=== PATIENT | male | born 1955 | race Caucasian/White ===

== ENCOUNTER 2019-01-18 16:22 | Emergency (ER) | payer OTHER ==
[~2019-01-18] VITALS: Ht 193 cm; Wt 72.6 kg
[~2019-01-18 16:22] MED LIST: ASPIR 8181 MG PO; COZAAR 25 MG TA25 M1 PO; PLAVIX 75 MG TA75 M1 PO; PROTONIX40 M1 PO; ROSUVASTATIN CA20 MG PO
[2019-01-18] MEDS ORDERED: ZETIA10 MG PO (16:39)
[2019-01-18 16:41] LABS: ABSOLUTE NEUTROPHILS 5.5 thou/uL (1.4-8.2); BASOPHILS 0.7 % (0.0-2.0); EOSINOPHILS 2.6 % (0.0-3.0); HEMATOCRIT 35.2 % (42.0-52.0); HEMOGLOBIN 11.7 gm/dL (14.0-18.0); LYMPHOCYTES 25.8 % (24.0-44.0); MCH 31.8 pg (26.0-34.0); MCHC 33.2 g/dL (28.0-37.0); MCV 95.7 fL (80.0-100.0); MONOCYTES 7.1 % (1.0-8.0); PLATELET COUNT 223 thou/uL (150-400); POLYS 63.8 % (36.0-66.0); RBC 3.68 mil/uL (4.50-6.00); RDW 13.6 % (10.5-14.5); WBC 8.6 thou/uL (4.0-11.0)
[2019-01-18 16:44] LABS: URINE BILIRUBIN NEGATIVE (Negative); URINE BLOOD TRACE (Negative); URINE CLARITY CLEAR; URINE COLOR YELLOW; URINE GLUCOSE-RANDOM* NEGATIVE (Negative); URINE KETONES NEGATIVE (Negative); URINE LEUKOCYTES-REFLEX NEGATIVE (Negative); URINE NITRITE-REFLEX NEGATIVE (Negative); URINE PROTEIN (DIPSTICK) NEGATIVE (Negative); URINE SPECIFIC GRAVITY <= 1.005 (1.005-1.035); URINE UROBILINOGEN 0.2 E.U./dl (0.2-1.0)
[2019-01-18 16:59] LABS: APTT 31.6 Seconds (24.5-32.8); D-DIMER 0.61 ug/mLFEU (0.19-0.50); PROTIME 10.3 Seconds (9.3-11.4)
[2019-01-18 17:00] LABS: ANION GAP 11 mmol/L (7-16); BUN 9 mg/dL (7-18); CHLORIDE 98 mmol/L (98-107); CO2 24 mmol/L (21-32); GLUCOSE 94 mg/dL (74-106); POTASSIUM 3.6 mmol/L (3.5-5.1); SODIUM 133 mmol/L (136-145)
[2019-01-18 17:04] LABS: MAGNESIUM 1.9 mg/dL (1.8-2.4)
[2019-01-18 17:09] LABS: ALBUMIN 3.8 g/dL (3.4-5.0); SGOT 36 U/L (15-37); SGPT 29 U/L (30-65); TOTAL BILIRUBIN 0.5 mg/dL (<0.1-1.0); TOTAL PROTEIN 7.4 g/dL (6.4-8.2); TROPONIN-I <0.06 ng/mL (<0.06)
[2019-01-18] MEDS ORDERED: CEFDINIR300 MG PO (17:58)
[2019-01-18 18:20] VITALS: BP 121/51
--- NOTE | 2019-01-19 10:54 | EKG ---
[address] [place] [address] ELECTROCARDIOGRAM REPORT Name: FELICIA ROBERTS [facility] [id number] Admission: 01/18/19 Attend Phys: Discharge: 01/18/19 Date of : 53 Report #: [id number] THIS REPORT FOR: //name// [facility] ED Test Date: 2019-01-18 Test Time: 16:26:46 Pat Name: FELICIA ROBERTS Department: Room: Gender: M Model [employer]: [facility] : 1955 Requested By: Cristina Crabtree Order Number: [id number] MD: Beni Coley Measurements Intervals [place] Rate: 73 P: 87 [place]: 182 QRS: 78 QRSD: 98 T: 67 QT: 374 QTc: 413 Interpretive Statements Sinus rhythm RSR' in V1 or V2, probably normal variant Probable left ventricular hypertrophy Compared to ECG 07/16/2016 15:22:24 RSR' in V1 or V2 now present ST (T wave) deviation no longer present Electronically Signed On 01-19-2019 10:53:46 CDT by Beni Coley [email or web address] <ELECTRONICALLY SIGNED> By: Beni Coley MD 01/19/19 1053 1626 1626 Beni Coley MD /LORI
== END 2019-01-18 18:20 | disposition home or self-care (01) ==
LOC: ER 16:22
PROVIDERS: Emergency Medicine; Physician Assistant
DX: J32.2 Chronic ethmoidal sinusitis (principal); D64.9 Anemia, unspecified; R31.29 Other microscopic hematuria; R42 Dizziness and giddiness; I10 Essential (primary) hypertension; E78.00 Pure hypercholesterolemia, unspecified; E78.5 Hyperlipidemia, unspecified; F17.210 Nicotine dependence, cigarettes, uncomplicated; Z96.651 Presence of right artificial knee joint; Z88.1 Allergy status to other antibiotic agents; Z88.2 Allergy status to sulfonamides

== ENCOUNTER 2019-05-28 10:08 | Emergency (ER) | payer OTHER ==
[~2019-05-28] VITALS: Ht 193 cm; Wt 74.8 kg
[~2019-05-28 10:08] MED LIST changes: +CEFDINIR300 MG PO; +ZETIA10 MG PO
[2019-05-28 10:30] LABS: ABSOLUTE NEUTROPHILS 5.7 thou/uL (1.4-8.2); BASOPHILS 0.9 % (0.0-2.0); EOSINOPHILS 4.2 % (0.0-3.0); HEMATOCRIT 39.5 % (42.0-52.0); HEMOGLOBIN 13.4 gm/dL (14.0-18.0); LYMPHOCYTES 25.5 % (24.0-44.0); MCH 33.1 pg (26.0-34.0); MCHC 33.9 g/dL (28.0-37.0); MCV 97.6 fL (80.0-100.0); MONOCYTES 6.9 % (1.0-8.0); PLATELET COUNT 268 thou/uL (150-400); POLYS 62.5 % (36.0-66.0); RBC 4.05 mil/uL (4.50-6.00); RDW 13.6 % (10.5-14.5); WBC 9.2 thou/uL (4.0-11.0)
[2019-05-28] MEDS ORDERED: PROAIR HFA8.5 GM INH (10:31)
[2019-05-28 10:38] LABS: ANION GAP 9 mmol/L (7-16); BUN 16 mg/dL (7-18); CALCIUM 9.9 mg/dL (8.5-10.1); CHLORIDE 102 mmol/L (98-107); CO2 29 mmol/L (21-32); GLUCOSE 84 mg/dL (74-106); POTASSIUM 3.9 mmol/L (3.5-5.1); SODIUM 140 mmol/L (136-145)
[2019-05-28 10:46] LABS: TROPONIN-I <0.06 ng/mL (<0.06)
[2019-05-28] MEDS ORDERED: CARAFATE 1 GM TA1 G1 PO (12:57)
[2019-05-28] MEDS ORDERED: PROTONIX40 MG PO (12:57)
[2019-05-28] MEDS ORDERED: NORCO 5-325 TA1 EAC1 PO (12:57)
[2019-05-28] MEDS ORDERED: SENNA-DOCUSATE1 EAC1 PO (12:57)
[2019-05-28 13:16] VITALS: BP 152/73
--- NOTE | 2019-05-29 17:18 | EKG ---
[address] [address] [employer] [facility] [place] [address] ELECTROCARDIOGRAM REPORT Name: FELICIA ROBERTS Room #: DEP Jose#: [id number] Admission: 05/28/19 Attend Phys: Discharge: 05/28/19 Date of : 53 Report #: [id number] THIS REPORT FOR: //name// [facility] ED Test Date: 2019-05-28 Test Time: 10:10:20 Pat Name: FELICIA ROBERTS Department: Room: Gender: Porcelain Turner: : 1955 Requested By: Yfn Estrada Order Number: [id number] MD: Manan James Measurements Intervals [place] Rate: 86 P: 78 MS: 164 QRS: 83 QRSD: 97 T: 78 QT: 377 QTc: 451 Interpretive Statements Sinus rhythm Borderline right axis deviation Compared to ECG 01/18/2019 16:26:46 No significant changes Electronically Signed On 05-29-2019 17:17:41 MANAGER E LEARNING by Manan James [email or web address] <ELECTRONICALLY SIGNED> By: Manan James MD 05/29/19 1717 1010 1010 MD SAVANNA Young
== END 2019-05-28 13:17 | disposition home or self-care (01) ==
LOC: ER 10:08
PROVIDERS: Emergency Medicine
DX: R10.13 Epigastric pain (principal); I10 Essential (primary) hypertension; E78.5 Hyperlipidemia, unspecified; F17.210 Nicotine dependence, cigarettes, uncomplicated; Z88.1 Allergy status to other antibiotic agents; Z88.2 Allergy status to sulfonamides; Z96.651 Presence of right artificial knee joint

== ENCOUNTER 2020-02-09 06:39 | Emergency (ER) | payer OTHER ==
[~2020-02-09] VITALS: Ht 195.6 cm; Wt 74.8 kg
[~2020-02-09 06:39] MED LIST changes: +CARAFATE 1 GM TA1 G1 PO; +NORCO 5-325 TA1 EAC1 PO; +PROAIR HFA8.5 GM INH; +PROTONIX40 MG PO; +SENNA-DOCUSATE1 EAC1 PO
[2020-02-09] MEDS ORDERED: SUPER B COMPLEX PO (06:54)
[2020-02-09] MEDS ORDERED: PROTONIX40 M2 PO (06:54)
[2020-02-09] MEDS ORDERED: POTASSIUM (06:55)
[2020-02-09] MEDS ORDERED: FLONASE 0.05%50 MCG NARES (06:56)
[2020-02-09 07:21] LABS: HEMATOCRIT 39.9 % (42.0-52.0); HEMOGLOBIN 13.3 gm/dL (14.0-18.0); MCH 32.5 pg (26.0-34.0); MCHC 33.3 g/dL (28.0-37.0); MCV 97.5 fL (80.0-100.0); RBC 4.1 mil/uL (4.50-6.00); RDW 13.4 % (10.5-14.5); WBC 9.4 thou/uL (4.0-11.0)
[2020-02-09 07:29] LABS: ANION GAP 15 mmol/L (7-16); BUN 11 mg/dL (7-18); CALCIUM 9.5 mg/dL (8.5-10.1); CHLORIDE 103 mmol/L (98-107); CO2 23 mmol/L (21-32); CREATININE 0.9 mg/dL (0.7-1.3); GLUCOSE 128 mg/dL (74-106); POTASSIUM 3.8 mmol/L (3.5-5.1); SODIUM 141 mmol/L (136-145)
[2020-02-09 07:37] LABS: TROPONIN-I <0.06 ng/mL (<0.06)
[2020-02-09] MEDS ORDERED: DOXYCYCLINE 10100 MG PO (08:14)
--- NOTE | 2020-02-09 08:15 | EKG ---
[facility] [place] [address] ELECTROCARDIOGRAM REPORT Name: FELICIA ROBERTS Room #: REG [facility].#: [id number] Admission: 02/09/20 Attend Phys: Discharge: Date of : 53 Report #: [id number] THIS REPORT FOR: cc: Keith Lewis Theodore M. DO Santiago, Patrick MD [facility] ~ THIS REPORT FOR: //name// [facility] ED Test Date: 2020-02-09 Test Time: 07:28:18 Pat Name: FELICIA ROBERTS Department: Room: Gender: Research Laboratory Technician: CHELY BUI : 1955 Requested By: Jake Good Order Number: [id number] MD: Nick Rai Measurements Intervals [place] Rate: 72 P: 80 [place]: 177 QRS: 77 QRSD: 97 T: 73 QT: 409 QTc: 448 Interpretive Statements Sinus rhythm RSR' in V1 or V2, probably normal variant Compared to ECG 05/28/2019 10:10:20 RSR' in V1 or V2 now present Electronically Signed On 02-09-2020 8:14:58 CDT by Nick Rai [email or web address] <ELECTRONICALLY SIGNED> By: Nick Rai MD, [facility] 02/09/2014 7 7 Nick Rai MD, [facility] /EPI
[2020-02-09 08:37] VITALS: BP 113/60
== END 2020-02-09 08:45 | disposition home or self-care (01) ==
LOC: ER 06:39
PROVIDERS: Emergency Medicine
DX: J32.9 Chronic sinusitis, unspecified (principal); I10 Essential (primary) hypertension; E78.5 Hyperlipidemia, unspecified; F17.210 Nicotine dependence, cigarettes, uncomplicated; Z79.899 Other long term (current) drug therapy; Z88.2 Allergy status to sulfonamides; Z88.1 Allergy status to other antibiotic agents; Z88.8 Allergy status to other drugs, medicaments and biological substances

== ENCOUNTER → 2020-09-01 | Outpatient (CLI) | payer OTHER ==
[~2020-09-01] MED LIST changes: +DOXYCYCLINE 10100 MG PO; +FLONASE 0.05%50 MCG NARES; +POTASSIUM; +PROTONIX40 M2 PO; +SUPER B COMPLEX PO
== END ==
LOC: SJCVCIMAG 08-30 08:49
PROVIDERS: ATTEND Internal Medicine Cardiovascular Disease
DX: I65.23 Occlusion and stenosis of bilateral carotid arteries (principal); I70.201 Unspecified atherosclerosis of native arteries of extremities, right leg; R00.0 Tachycardia, unspecified; E78.5 Hyperlipidemia, unspecified; I10 Essential (primary) hypertension; I25.10 Atherosclerotic heart disease of native coronary artery without angina pectoris; I73.9 Peripheral vascular disease, unspecified; F17.200 Nicotine dependence, unspecified, uncomplicated; Z79.82 Long term (current) use of aspirin; Z88.1 Allergy status to other antibiotic agents; Z88.8 Allergy status to other drugs, medicaments and biological substances; Z98.61 Coronary angioplasty status

== ENCOUNTER 2021-04-17 08:38 | Emergency (ER) | payer OTHER ==
[~2021-04-17] VITALS: Ht 193 cm; Wt 70.6 kg
[2021-04-17 09:10] LABS: CREATININE 1.1 mg/dL (0.7-1.3); POTASSIUM 3.7 mmol/L (3.5-5.1)
[2021-04-17 09:20] LABS: ALBUMIN 4.1 g/dL (3.4-5.0); TOTAL BILIRUBIN 0.6 mg/dL (0.2-1.0)
[2021-04-17 09:25] LABS: ABSOLUTE NEUTROPHILS 5.1 thou/uL (1.4-8.2); BASOPHILS 1.3 % (0.0-2.0); EOSINOPHILS 2.8 % (0.0-3.0); HEMATOCRIT 38.2 % (42.0-52.0); HEMOGLOBIN 12.8 gm/dL (14.0-18.0); LYMPHOCYTES 24.3 % (24.0-44.0); MCH 32.4 pg (26.0-34.0); MCHC 33.4 g/dL (28.0-37.0); MONOCYTES 7.5 % (1.0-8.0); PLATELET COUNT 264 thou/uL (150-400); POLYS 64.1 % (36.0-66.0); RBC 3.94 mil/uL (4.50-6.00); RDW 13.1 % (10.5-14.5)
[2021-04-17 09:30] LABS: APTT 31.7 Seconds (24.5-32.8); INR 0.99; PROTIME 10.8 Seconds (10.5-12.1)
[2021-04-17] MEDS ORDERED: DOXYCYCLINE 10100 MG PO (10:53)
[2021-04-17 11:05] VITALS: BP 120/64
--- NOTE | 2021-04-17 12:07 | EKG ---
[address] [address] ELECTROCARDIOGRAM REPORT Name: FELICIA ROBERTS Room #: [facility] [id number] Admission: 04/17/21 Attend Phys: Discharge: Date of : 53 Report #: [id number] [facility] ED Test Date: 2021-04-17 Test Time: 09:13:09 Pat Name: FELICIA ROBERTS Department: Room: Gender: M Claims Technician: : 1955 Requested By: Florentino Ramon Order Number: [id number] MD: Manan James Measurements Intervals [place] Rate: 76 P: 68 [place]: 171 QRS: 75 QRSD: 96 T: 66 QT: 383 QTc: 431 Interpretive Statements Sinus rhythm Compared to ECG 02/09/2020 07:28:18 No significant changes Electronically Signed On 04-17-2021 12:06:54 PLUSH BRUSHER by Manan James [email or web address] <ELECTRONICALLY SIGNED> By: Manan James MD 04/17/21 1206 0913 2 Manan James MD /EPI
== END 2021-04-17 11:03 | disposition home or self-care (01) ==
LOC: ER 08:38
PROVIDERS: Emergency Medicine
DX: J01.80 Other acute sinusitis (principal); Z20.822 Contact with and (suspected) exposure to COVID-19; B96.89 Other specified bacterial agents as the cause of diseases classified elsewhere; R42 Dizziness and giddiness; I10 Essential (primary) hypertension; E78.5 Hyperlipidemia, unspecified; F17.210 Nicotine dependence, cigarettes, uncomplicated; Z88.1 Allergy status to other antibiotic agents; Z79.899 Other long term (current) drug therapy